=== PATIENT | male | born 1955 | race Caucasian/White ===

== ENCOUNTER 2020-03-18 17:12 | Emergency (ER) | payer MEDICARE, MEDICAID ==
[~2020-03-18] VITALS: Ht 177.8 cm; Wt 113.4 kg
[2020-03-18 17:20] VITALS: BP 139/72
--- NOTE | 2020-03-18 18:23 | NUR ---
DR SANCHES AT BEDSIDE EVALUATING PT.
[2020-03-18] MEDS ORDERED: KETOROLAC 30 MG/ML VIAL IM ONE (18:25)
--- NOTE | 2020-03-18 18:28 | NUR ---
C/O L KNEE PAIN POST GETTING HIS L FOOT CAUGHT IN BUS DOOR PT STATES HE FELL BACKWARDS BUT DENIES LOC BILTERAL LEG EDEMA PRESENT DUE TO CHF, PT AOX4, NO LIMITATION OF ROM . PMH- HTN, CHF
--- NOTE | 2020-03-18 18:41 | NUR ---
GAVE FOOD TO PT, PT REQUESTED FOR CRUTCHES DR SANCHES INFORMED AND AWARE.
[2020-03-18 18:46] VITALS: BP 138/72
--- NOTE | 2020-03-18 18:47 | NUR ---
SIZED CRUTCHES TO PT
--- NOTE | 2020-03-18 18:48 | NUR ---
Patient discharged with v/s stable. Written and verbal after care instructions given and explained regarding knee sprain. Patient alert, oriented and verbalized understanding of instructions. Ambulatory with steady gait. All questions addressed prior to discharge. ID band removed. Patient advised to follow up with PMD. Rx of naprosyn given. Patient educated on indication of medication including possible reaction and side effects. Opportunity to ask questions provided and answered.
== END 2020-03-18 18:48 | disposition home or self-care (01) ==
LOC: MED 17:12
DX: S83.8X2A Sprain of other specified parts of left knee, initial encounter (principal); F17.210 Nicotine dependence, cigarettes, uncomplicated; I11.0 Hypertensive heart disease with heart failure; W20.8XXA Other cause of strike by thrown, projected or falling object, initial encounter; Y93.89 Activity, other specified; Y92.89 Other specified places as the place of occurrence of the external cause; Y99.8 Other external cause status
CPT/HCPCS: 73562; 96372; 99283; J1885; Q0092